=== PATIENT | female | born 1995 | race Caucasian/White ===

== ENCOUNTER 2018-10-16 08:00 | Outpatient (CLI) | payer OTHER ==
[2018-10-16 18:17] LABS: BASOPHILS % (AUTO) 0.5 %; EOSINOPHILS # (AUTO) 0.2 10^3/uL (0.0-0.7); EOSINOPHILS % (AUTO) 2.9 %; LYMPHOCYTES # (AUTO) 2.1 10^3/uL (1.5-3.5); LYMPHOCYTES % (AUTO) 33.4 %; MEAN CORPUSCULAR HEMOGLOBIN 31.2 pg (27.0-31.0); MEAN CORPUSCULAR HGB CONC 33.3 g/dL (32.0-36.0); MEAN CORPUSCULAR VOLUME 93.5 fL (81.0-99.0); MEAN PLATELET VOLUME 9.9 fL (7.9-10.8); MONOCYTES # (AUTO) 0.3 10^3/uL (0.0-1.0); MONOCYTES % (AUTO) 5.1 %; NEUTROPHILS # (AUTO) 3.6 10^3/uL (1.5-6.6); NEUTROPHILS % (AUTO) 58.1 %; PLT - PLATELET COUNT 172 10^3/uL (130-450); RED BLOOD COUNT 4.49 10^6/uL (4.20-5.40); RED CELL DISTRIBUTION WIDTH 13.2 % (12.0-15.0); WHITE BLOOD COUNT 6.2 x10^3/uL (4.8-10.8)
[2018-10-16 18:22] LABS: CALCIUM 9.1 mg/dL (8.5-10.3); CREATININE 0.6 mg/dL (0.4-1.0)
== END 2018-10-16 08:01 ==
LOC: LAB.F 08:00
PROVIDERS: ATTEND Internal Medicine
DX: R53.83 Other fatigue (principal)
CPT/HCPCS: 36415; 80048; 84443; 85025

== ENCOUNTER 2019-02-08 20:02 | Emergency (ER) | payer OTHER ==
[2019-02-08 21:15] VITALS: BP 127/63
== END 2019-02-08 21:55 | disposition left against medical advice (07) ==
LOC: ED 20:02
DX: Z53.21 Procedure and treatment not carried out due to patient leaving prior to being seen by health care provider (principal)

== ENCOUNTER 2019-02-09 14:55 | Emergency (ER) | payer OTHER ==
[2019-02-09] MEDS ORDERED: AMOXICILLIN 250 MG CAPSULE PO STA (15:47)
[2019-02-09] MEDS ORDERED: HYDROcod/ACETAM 5/325 MG TABLET PO STA (15:47)
[2019-02-09] MEDS ORDERED: NAPROXEN 250 MG TABLET PO STA (15:47)
--- NOTE | 2019-02-09 15:48 | ED Physician Documentation ---
PD HPI HEENT - Stated complaint Stated Complaint: TOOTH PX - Chief complaint Chief Complaint: Heent - Additional information Additional information: 23-year-old female presents the emergency department with left upper jaw pain for the past week. The patient has a history of recurrent dental infections. The patient is scheduled to see dental on February 18. No facial swelling. No tongue swelling. No stridor. No difficulty opening her mouth and no relieving factors. Review of Systems Constitutional: denies: Fever Eyes: denies: Discharge Throat: reports: Dental pain / toothache Cardiac: denies: Chest pain / pressure Respiratory: denies: Cough Neurologic: denies: Generalized weakness PD PAST MEDICAL HISTORY - Present Medications Home Medications: Ambulatory Orders Medication Instructions Recorded Confirmed Amoxicillin 875 mg PO BID #20 tablet 02/09/19 - Allergies Allergies/Adverse Reactions: Allergies Allergy/AdvReac Type Severity Reaction Status Date / Time No Known Drug Allergies Allergy Verified 02/08/19 21:15 PD ED PE NORMAL - General General: Alert and oriented X 3, No acute distress - HEENT HEENT: Atraumatic, PERRL, EOMI, Ears normal - Cardiac Cardiac: RRR - Respiratory Respiratory: No respiratory distress - Derm Derm: Normal color - Extremities Extremities: No deformity - Neuro Neuro: Alert and oriented X 3, Normal speech - Psych Psych: Normal affect PD ED PE EXPANDED - HEENT HEENT Visual: 1 - tenderness (Dental decay, surrounding gingivitis. No abscess in the gumline and no facial swelling or facial cellulitis) Results - Vitals Vitals: Vital Signs - 24 hr 02/09/19 15:27 Temperature 37.1 C Heart Rate 83 Respiratory 14 Rate Blood Pressure 117/76 O2 Saturation 100 Oxygen O2 Source Room air PD MEDICAL DECISION MAKING - ED course ED course: The patient appears to have an infected dental carry, the patient appears appropriate for discharge with oral antibiotics and follow-up with dental. I discussed warning signs and recommended returning for any worsening or any concerns Departure - Departure Disposition: 01 Home, Self Care Clinical Impression: Dental infection Condition: Good Instructions: ED Abscess Tooth Prescriptions: Amoxicillin 875 mg PO BID #20 tablet Comments: Please follow-up with the dentist for further workup and management of your dental pain. Please return to the emergency department for any worsening or any concerns
[2019-02-09 16:03] VITALS: BP 110/71
== END 2019-02-09 16:03 | disposition home or self-care (01) ==
LOC: ED 14:55
DX: K04.7 Periapical abscess without sinus (principal)
CPT/HCPCS: 99283; A9270

== ENCOUNTER 2019-08-16 23:41 | Outpatient (CLI) | payer OTHER | END 2019-08-16 23:42 | disposition critical access hospital (66) | LOC: EMS 23:41 | PROVIDERS: ATTEND Surgery | DX: R41.82 Altered mental status, unspecified (principal) | CPT/HCPCS: A0425; A0429 ==